=== PATIENT | female | born 1995 | race Caucasian/White ===

== ENCOUNTER → 2019-03-25 | Outpatient (REF) | payer OTHER ==
[2019-03-25 17:45] LABS: HEMATOCRIT 42.4 % (36.0-47.0); HEMOGLOBIN 14.4 g/dl (12.0-15.5); MEAN CORPUSCULAR HEMOGLOBIN 30.1 pg (27.0-33.0); MEAN CORPUSCULAR VOLUME 88.5 fl (80.0-96.0); PLATELET COUNT, AUTOMATED 189 10^3/uL (150-450); RED BLOOD COUNT 4.79 10^6/uL (4.00-5.40); WHITE BLOOD COUNT 8.6 10^3/uL (4.0-10.0)
[2019-03-25 20:30] LABS: HCG, SERUM QUANTITATIVE 34377 MIU/ML
[2019-03-26 06:39] LABS: RUBELLA IgG QUALITATIVE IMMUNE (IMMUNE)
[2019-03-26 07:08] LABS: HEPATITIS C VIRUS ABY INDEX 0.1 INDEX (<0.8); HIV 1&2 SCREEN CENTAUR NEGATIVE (NEGATIVE)
== END ==
LOC: M LAB REF 16:51
PROVIDERS: ATTEND Nurse Practitioner Women's Health
DX: Z32.01 Encounter for pregnancy test, result positive (principal); O36.80X0 Pregnancy with inconclusive fetal viability, not applicable or unspecified; Z3A.00 Weeks of gestation of pregnancy not specified

== ENCOUNTER → 2019-07-14 | Outpatient (REF) | payer OTHER ==
[2019-07-14 21:36] LABS: CHLAMYDIA DNA AMPLIFICATION NEGATIVE (NEGATIVE); GC DNA AMPLIFICATION NEGATIVE (NEGATIVE)
== END ==
LOC: M SFHCLERA 13:16
PROVIDERS: ATTEND Nurse Practitioner Family
DX: N94.9 Unspecified condition associated with female genital organs and menstrual cycle (principal)
CPT/HCPCS: 81002; 87070; 87077; 87086; 87186; 87661; G0463

== ENCOUNTER → 2019-08-03 | Outpatient (REF) | payer OTHER | LOC: M SFHCLERA 14:32 | PROVIDERS: ATTEND Nurse Practitioner Family | DX: N89.8 Other specified noninflammatory disorders of vagina (principal) | CPT/HCPCS: 81002; 87070; 87086; G0463 ==

== ENCOUNTER → 2020-12-06 | Outpatient (CLI) | payer OTHER ==
--- NOTE | 2020-12-06 16:47 | REP ---
INDICATION: PREG, F/U ANATOMY COMPARISON: None available. TECHNIQUE: Transabdominal obstetrical ultrasound with color Doppler evaluation. FINDINGS: Examination demonstrates a single live intrauterine in transverse presentation. motion is identified by technologist. Placenta is noted anterior and grade 0 without evidence for placenta previa or abruption. Amniotic fluid volume is normal. Cervix measures 4.1 cm in length and appears closed.. Gestational age by LMP 23 weeks 4 days with ABHIJIT 03/31/2021. Gestational age by current measurements 24 weeks 6 days with ABHIJIT 03/22/2021. FHR equals 149 beats per minute. Estimated weight 737 grams (greater than 97thpercentile based on age by LMP at 23 weeks 4 days). Anatomical assessment demonstrates normal structures including facial profile, and heart/ventricular outflow tracts. IMPRESSION: Single live intrauterine in transverse lie. Estimated weight greater than expected and requires correlation. Normal appearance of the facial profile and heart/ventricular outflow tracts. <Electronically signed by Luis Glasgow > 12/06/20 [id number]
== END ==
LOC: M RAD 15:29
PROVIDERS: ATTEND Family Medicine
DX: Z34.82 Encounter for supervision of other normal pregnancy, second trimester (principal)

== ENCOUNTER → 2020-12-15 | Outpatient (CLI) | payer OTHER ==
[2020-12-15 18:10] LABS: THYROID STIMULATING HORMONE 0.303 uIU/ML (0.358-3.740); THYROXINE (T4) 13.6 UG/DL (4.5-12.0)
[2020-12-15 18:12] LABS: TOTAL 25(OH) VITAMIN D 18.6 NG/ML (30.0-100.0)
== END ==
LOC: M LAB 16:45
PROVIDERS: ATTEND Family Medicine
DX: E55.9 Vitamin D deficiency, unspecified (principal)

== ENCOUNTER → 2020-12-27 | Outpatient (CLI) | payer OTHER ==
[2020-12-27 17:24] LABS: BASO % 0.3 % (0.0-1.0); EOS # 0.1 10^3/uL (0.0-0.5); EOS % 0.9 % (0.0-3.0); HEMATOCRIT 36.1 % (36.0-47.0); HEMOGLOBIN 11.9 g/dl (12.0-15.5); LYMPH # 1.4 10^3/uL (1.5-5.0); LYMPH % 19.7 % (24.0-44.0); MEAN CORPUSCULAR HEMOGLOBIN 30.4 pg (27.0-33.0); MEAN CORPUSCULAR VOLUME 92.1 fl (80.0-96.0); MONO # 0.6 10^3/uL (0.0-0.8); MONO % 8.1 % (2.0-8.0); NEUTROPHILS # 4.9 10^3/uL (1.5-8.5); NEUTROPHILS % 70.4 % (36.0-66.0); PLATELET COUNT, AUTOMATED 152 10^3/uL (150-450); RED BLOOD COUNT 3.92 10^6/uL (4.00-5.40); WHITE BLOOD COUNT 6.9 10^3/uL (4.0-10.0)
== END ==
LOC: M LAB 15:17
PROVIDERS: ATTEND Family Medicine
DX: Z33.1 Pregnant state, incidental (principal)

== ENCOUNTER → 2021-01-05 | Outpatient (CLI) | payer OTHER ==
--- NOTE | 2021-01-05 16:49 | REP ---
INDICATION: F/U ANATOMY. COMPARISON: 12/06/2020 TECHNIQUE: Transabdominal FINDINGS: Multiple ultrasonographic images of the gravid uterus shows a single living intrauterine gestation in the cephalic presentation. Doppler interrogation of the heart shows a heart rate of 150 beats per minute. The placenta is anterior not low lying. The cervix measures 3.2 cm in length and is closed. Doppler interrogation of the umbilical artery shows an AB ratio of 2.55. This is within normal range. The subjective amniotic fluid volume is within normal limits. The calculated amniotic fluid index is 18.3 within expected range 9.4 to 22.8. BPD: 7.7 cm 30 weeks 6 days HC: 27.7 cm 30 weeks 2 days AC: 23.8 cm 28 weeks 1 day FL: 5.1 cm 27 weeks 3 days The estimated weight is 1201 g which is at the 55th percentile for a 27 week 6 day gestational age. anatomical screen was completed on prior exams. Outside examination showed a complete anatomical screen with the exception of the four-chamber heart and outflow tracts which was confirmed on the exam of 11/06/2020 IMPRESSION: Single living intrauterine gestation as described above with an estimated gestational age of 28 weeks 6 days via composite criteria and an estimated date of delivery of 03/24/2021 by today's exam. No anomalies were detected. <Electronically signed by Gonzalez Herrera > 01/05/21 [id number]
== END ==
LOC: M RAD 15:48
PROVIDERS: ATTEND Family Medicine
DX: Z34.82 Encounter for supervision of other normal pregnancy, second trimester (principal)

== ENCOUNTER → 2021-03-04 | Outpatient (CLI) | payer OTHER ==
--- NOTE | 2021-03-04 16:08 | REP ---
INDICATION: ANATOMY, PRESENTATION, LEONOR, EST WEIGHT COMPARISON: 01/05/2021 TECHNIQUE: Transabdominal obstetrical ultrasound with color Doppler evaluation. FINDINGS: Examination demonstrates a single live intrauterine in cephalic presentation. motion is identified by technologist. Placenta is noted anterior and grade 1 without evidence for placenta previa or abruption. Amniotic fluid volume is normal. Cervix measures 2.9 cm in length and appears closed. LEONOR equals 13.9 cm. Umbilical artery SD ratio: 2.87 Selected gestational age: 36 weeks 1 day with ABHIJIT 03/31/2021. Gestational age by current measurements 37 weeks 0 days with ABHIJIT 03/25/2021. FHR equals 139 beats per minute. BPD: 9.5 cm at 38 weeks 5 days HC: 34.6 cm at 40 weeks 0 days AC: 32.7 cm at 36 weeks 4 days FL: 6.8 cm at 34 weeks 6 days HL: 6.0 cm at 34 weeks 5 days HC/AC: 1.06 Estimated weight 3025 grams (72ndpercentile). Anatomical assessment is limited by crowding and advanced age but demonstrates no obvious abnormality. IMPRESSION: 1. Single live advanced gestation in cephalic presentation demonstrating appropriate estimated weight and growth. 2. Closed cervix measures 2.9 cm in length. <Electronically signed by Luis Glasgow > 03/04/21 [id number]
== END ==
LOC: M RAD 14:33
PROVIDERS: ATTEND Family Medicine
DX: Z33.1 Pregnant state, incidental (principal)